=== PATIENT | male | born 1965 | race Hispanic/Latino ===

== ENCOUNTER 2024-08-06 12:08 | Emergency (ER) | payer OTHER ==
[~2024-08-06] VITALS: Ht 167.6 cm; Wt 95.3 kg
[~2024-08-06 12:08] MED LIST: METF-446 PO; VALS1TAB80 PO
[2024-08-06 12:57] LABS: ALBUMIN 3.7 g/dL (3.5-5.0); BILIRUBIN,TOTAL 0.5 mg/dL (0.2-1.0); CREATININE 1.5 mg/dL (0.5-1.3); POTASSIUM 4.1 mmol/L (3.5-5.1); TOTAL PROTEIN, SERUM 6.9 g/dL (6.0-8.3)
[2024-08-06 13:12] LABS: BASOPHILS # (AUTO) 0.08 K/uL (0.00-0.20); BASOPHILS % (AUTO) 0.9 % (0.0-5.0); EOSINOPHILS # (AUTO) 0.49 K/uL (0.00-0.70); EOSINOPHILS % (AUTO) 5.4 % (0.0-8.0); HEMATOCRIT 41.4 % (42-54); IMMATURE GRANULOCYTE ABSOLUTE 0.09 K/uL (0-1); LYMPHOCYTES # (AUTO) 1.1 K/uL (1.0-4.8); LYMPHOCYTES % (AUTO) 12.7 % (21.0-51.0); MEAN CORPUSCULAR HEMOGLOBIN 28.5 pg (27.0-33.0); MEAN CORPUSCULAR HGB CONC 34.3 g/dL (32.0-36.0); MONOCYTES # (AUTO) 0.5 K/uL (0.1-1.0); MONOCYTES % (AUTO) 5.7 % (3.0-13.0); NEUTROPHILS # (AUTO) 6.7 K/uL (1.8-7.7); NEUTROPHILS % (AUTO) 74.3 % (40.0-77.0); PLATELET COUNT (AUTO) 337 K/uL (130-400); RED BLOOD CELL COUNT(AUTO) 4.99 MIL/uL (4.50-6.20); RED CELL DISTRIBUTION WIDTH 12.3 % (11.0-15.5)
[2024-08-06 13:38] LABS: CHOLESTEROL 181 mg/dL (<200); HDL CHOLESTEROL 37 mg/dL (29-71); LDL DIRECT 87 mg/dL (0-99); TRIGLYCERIDES 476 mg/dL (30-200)
[2024-08-06] MEDS: 0.9%NACL 1000ML 1,000 ML IV STA (13:59)
[2024-08-06] MEDS: INSULIN humuLIN R 100 UNIT/ML 3ML IV STA (14:00)
[2024-08-06 16:50] VITALS: BP 151/81; PULSE 80; RESP 20; TEMP 98.7; O2SAT 97
[2024-08-06] MEDS: ASPIRIN 81MG CHEW TAB PO STA (16:50)
== END 2024-08-06 16:57 | disposition home or self-care (01) ==
LOC: EDH 12:08
DX: R07.89 Other chest pain (principal); I10 Essential (primary) hypertension; E11.9 Type 2 diabetes mellitus without complications; Z79.899 Other long term (current) drug therapy; Z79.84 Long term (current) use of oral hypoglycemic drugs
CPT/HCPCS: 99285; 96374; 71045; 96361; 80061; 84484 ×3; 80053; 85025; 82948; 36415; 93005; J1815; J7030